=== PATIENT | female | born 1940 | race Caucasian/White ===

== ENCOUNTER 2018-04-02 16:07 | Inpatient (IN) ==
[2018-04-02 16:55] LABS: BASO# 0.06 X1000 (0.0-0.2); BASO% 0.6 % (0.0-0.8); EOS# 0.71 X1000 (0.0-0.7); EOS% 6.6 % (0.0-10.0); HEMATOCRIT 33.6 % (37.0-47.0); HEMOGLOBIN 10.8 g/dL (12.0-16.0); IMM GRAN# 0.08 X1000 (0.0-0.04); IMM GRAN% 0.7 % (0.0-0.5); LYMPH# 3.19 X1000 (1.2-3.4); LYMPH% 29.7 % (20.5-51.1); MCH 26.9 PG (27-31); MCHC 32.1 g/dL (33-37); MCV 83.6 FL (81-99); MONO# 0.64 X1000 (0.11-0.59); NEUT# 6.05 X1000 (1.4-6.5); NEUT% 56.4 % (42.2-75.2); PLT 278 X1000 (130-400); RBC 4.02 XMIL (4.2-5.4); RDW 14.7 % (11.5-14.5); WBC 10.73 X1000 (4.8-10.8)
--- NOTE | 2018-04-02 16:56 | Diag Imaging Result Doc PS360 ---
EXAM: FEMUR MIN 2 VIEWS LEFT INDICATION: EXTREMITY PAIN TECHNIQUE: 4 views COMPARISON: None. FINDINGS: There has been a prior left knee arthroplasty. Arthroplasty hardware is in the expected position. There is a screw in the femoral shaft just proximal to the stem of the femoral component of the arthroplasty hardware that has fractured. A fragment of the screw is seen more inferiorly lateral to the shaft. There is irregularity at the lateral cortex of the mid femoral shaft that appears postsurgical/posttraumatic. There is no definite acute bony fracture, dislocation, or significant intrinsic osseous lesion, otherwise. The surrounding soft tissues are essentially unremarkable by plain radiograph. IMPRESSION: 1.Chronic appearing postsurgical/posttraumatic changes involving the femoral shaft as described. 2.Fractured metallic screw associated with the mid shaft of the femur as detailed above. 3.No definite acute osseous abnormality by plain radiograph. Electronically signed by Zheng Barker 04/02/2018 4:53 PM
[2018-04-02 17:25] LABS: ALB/GLOB RATIO 1.1; ALBUMIN 3.4 g/dL (3.5-5.0); CALCIUM 8.4 mg/dL (8.8-10.2); CREATININE 1.8 mg/dL (0.5-0.9); POTASSIUM 4.3 mmol/L (3.5-5.1); TOTAL BILIRUBIN 0.24 mg/dL (0.20-1.00); TOTAL PROTEIN 6.5 g/dL (6.3-8.3)
[2018-04-02] MEDS ORDERED: LOVENOX 1 MG/KG SUBQ ONE (20:04)
[2018-04-02] MEDS ORDERED: LOVENOX SUBQ ONE (20:30)
--- NOTE | 2018-04-02 23:23 | PROVIDER DOCUMENTATION ---
This chart was entered by Lisa Jensen Scribe, acting as scribe for Donna Mccann DO. HPI-Musculoskeletal Pain/Inj - GENERAL Chief Complaint: Edema Stated Complaint: LEG SWELLING Time Seen by Provider: 04/02/18 19:10 Source: patient - HX OF PRESENT ILLNESS-MUSKULOSKELTAL Nature of Presenting Problem: Patient is a 77 year old female who presents to the ED with left leg pain and swelling. Patient states symptoms started 6 weeks ago but has worsened recently. Patient denies recent injury or trauma to left leg. She was diagnosed with a R subclavian thrombus in January but came off Xarelto because it made her feel anxious and out of sorts. Quality of Pain: reports: aching Severity in ED: mild Onset/Duration: other (6 weeks) Timing: still present, getting worse Modifying Factors: improves with: nothing Any recent injury?: No Locality of Occurance: Home Similar Symptoms Previously?: Yes Recently seen or treated by another doctor?: No - LOWER EXTREMITY PAIN/INJURY Lower Extremities Pain: leg: left Context / Method of Injury: reports: unknown Associated Symptoms: reports: denies symptoms Review of Systems - Adult - REVIEW OF SYSTEMS - ADULT Constitutional: reports: no symptoms reported Eyes: reports: no symptoms reported Ears, Nose, Mouth & Throat: reports: no symptoms reported Cardiovascular: reports: no symptoms reported Respiratory: reports: shortness of breath. denies: cough, wheezing Gastrointestinal: reports: no symptoms reported Genitourinary: reports: no symptoms reported Musculoskeletal: reports: other (left leg pain). denies: back pain, neck pain Integumentary: reports: no symptoms reported Neurological: reports: no symptoms reported Psychiatric: reports: no symptoms reported Endocrine: reports: no symptoms reported Hematologic/Lymphatic: reports: no symptoms reported Allergic/Immunologic: reports: no symptoms reported All Other Systems: Reviewed and Negative Past History - Adult - PAST MEDICAL HISTORY-ADULT Review of Records: reports: Nursing Assessment Review, Medications Reviewed, Social history reviewed & non-contributory. Major Childhood Illnesses: reports: denies history Cardiovascular: reports: HTN Respiratory: reports: asthma, COPD Gastrointestinal: reports: cancer Obstetrical/Gynecological: reports: denies history Genitourinary: reports: denies history Musculoskeletal: reports: arthritis, chronic pain Neurological: reports: CVA, Seizures/Epilepsy Endocrine/Immune: reports: Diabetes, thyroid disorder Other Conditions: reports: other cancer - PRIOR SURGERIES/PROCEDURES Surgical/Procedure History: reports: cholecystectomy, hernia repair, joint replacement (total knee), other (bladder sx) - PRIOR HOSPITALIZATIONS Prior Hospitalizations: reports: none - IMMUNIZATION STATUS Childhood Immunizations: See Nurse Assessment Flu Vaccine: See Nurse Assessment - FAMILY HISTORY Family History: reviewed, not pertinent - SOCIAL HISTORY Smoking: denies Substance Use: denies Living Situation: family Physical Exam-Injury Related - Physical Exam-Injury Related Initial Vital Signs Reviewed: Yes General Appearance: alert, no apparent distress Respiratory: chest non-tender, lungs clear, normal breath sounds Cardiovascular: normal peripheral pulses, regular rate, rhythm Abdominal Exam: normal bowel sounds, non tender, soft Extremity: swelling (left upper and lower leg), tenderness (left medial thigh). negative: deformity, erythema Integumentary: normal color, warm/dry Neurologic: grossly normal Psych/Mental Status: normal mood/affect, oriented x 3 Progress - PLAN OF CARE/RESULTS Progress/Plan/Lab Results: Vital Signs - 8 hr 04/02/18 16:17 04/02/18 20:29 04/02/18 20:30 Temperature 98.4 F Pulse Rate 70 49 L 45 L Respiratory Rate 20 22 16 Blood Pressure 158/72 O2 Sat by Pulse Oximetry 96 97 66 L 04/02/18 20:40 04/02/18 20:50 04/02/18 21:00 Temperature Pulse Rate 52 L 52 L 51 L Respiratory Rate 10 L 15 15 Blood Pressure O2 Sat by Pulse Oximetry 100 99 04/02/18 21:10 04/02/18 21:20 04/02/18 21:30 Temperature Pulse Rate 56 L 58 L 53 L Respiratory Rate 15 15 14 Blood Pressure O2 Sat by Pulse Oximetry 98 04/02/18 21:40 04/02/18 21:50 04/02/18 22:00 Temperature Pulse Rate 55 L 53 L 53 L Respiratory Rate 16 18 17 Blood Pressure O2 Sat by Pulse Oximetry 97 04/02/18 22:10 04/02/18 22:57 Temperature Pulse Rate 55 L 57 L Respiratory Rate 16 18 Blood Pressure O2 Sat by Pulse Oximetry 97 96 Laboratory Results - last 24 hr 04/02/18 04/02/18 04/02/18 16:27 16:27 16:27 WBC 10.73 RBC 4.02 L Hgb 10.8 L Hct 33.6 L MCV 83.6 MCH 26.9 L MCHC 32.1 L RDW Std Deviation 14.7 H Plt Count 278 MPV 10.0 Immature Gran % (Auto) 0.7 H Neut % (Auto) 56.4 Lymph % (Auto) 29.7 [place] % (Auto) 6.0 Eos % (Auto) 6.6 Baso % (Auto) 0.6 Immature Gran # (Auto) 0.08 H Neut # (Auto) 6.05 Lymph # (Auto) 3.19 [place] # (Auto) 0.64 H Eos # (Auto) 0.71 H Baso # (Auto) 0.06 D-Dimer, Quantitative 1.18 H Sodium 139 Potassium 4.3 Chloride 105 Carbon Dioxide 21 L Anion Gap 13 BUN 30 H Creatinine 1.8 H Estimated GFR/1.73 m2 27 BUN/Creatinine Ratio 17 Glucose 203 H Calculated Osmolality 290 Calcium 8.4 L Total Bilirubin 0.24 AST 8 L ALT 7 L Alkaline Phosphatase 94 Total Protein 6.5 Albumin 3.4 L Globulin 3.1 Albumin/Globulin Ratio 1.1 Orders Category Date Time Status FEMUR MIN 2 VIEWS LEFT [RAD] Stat Exams 04/02/18 16:29 Completed CBC WITH ELECTRONIC DIFF [HEME] Stat Lab 04/02/18 16:27 Completed CMP [COMPREHENSIVE METABOLIC PANEL] [CHEM] Stat Lab 04/02/18 16:27 Completed D-DIMER [COAG] Stat Lab 04/02/18 16:27 Completed Enoxaparin [Lovenox] Med 04/02/18 20:30 Discontinued 100 mg SUBQ ONCE ONE Venous U/S Left Leg Stat Ther 04/02/18 21:21 Completed Clinically stable here. US positive for L femoral vein DVT. Her R pleuritic CP is concerning for PE. Her creatinine is 1.8 thus CTA not possible. She was given Lovenox 1mg/kg, admitted to hospitalist service for further eval and treatment. Result Diagrams: 04/02/18 16:27 04/02/18 16:27 - XRAY 1 XRAY: Left XRAY Study: Femur Impression: See EMR Report ( EXAM: FEMUR MIN 2 VIEWS LEFT INDICATION: EXTREMITY PAIN TECHNIQUE: 4 views COMPARISON: None. FINDINGS: There has been a prior left knee arthroplasty. Arthroplasty hardware is in the expected position. There is a screw in the femoral shaft just proximal to the stem of the femoral component of the arthroplasty hardware that has fractured. A fragment of the screw is seen more inferiorly lateral to the shaft. There is irregularity at the lateral cortex of the mid femoral shaft that appears postsurgical/posttraumatic. There is no definite acute bony fracture, dislocation, or significant intrinsic osseous lesion, otherwise. The surrounding soft tissues are essentially unremarkable by plain radiograph. IMPRESSION: 1.Chronic appearing postsurgical/posttraumatic changes involving the femoral shaft as described. 2.Fractured metallic screw associated with the mid shaft of the femur as detailed above. 3.No definite acute osseous abnormality by plain radiograph. Electronically signed by Zheng Barker 2018 4:53 PM 04/02/18 1653 Interpreting Physician: Zheng Barker MD Dictated Date/Time: 04/02/18 1649 cc: Umer Whitaker MD; Gal Ortega) - CONSULTS/PCP/HOSPITALIST Notification #1 *Consult/PCP/Hospitalist*: Dr. Araujo Time Discussed: 21:21 Reason/Comments: Dr. Mccann consulted with Dr. Araujo about patient. Consult Disposition: Will see in ED Departure - Departure Date of Disposition Decision: 04/02/18 Time of Disposition Decision: 23:21 DIAGNOSIS: DVT (deep venous thrombosis) Qualifiers: DVT location: lower extremity Affected thrombotic vein of extremity: femoral Chronicity: acute Laterality: left Qualified Code(s): I82.412 - Acute embolism and thrombosis of left femoral vein Disposition: ADMITTED INPATIENT 09 Certified Medical Emergency: Emergent Condition: Fair Referrals and Follow-Ups: Gal Ortega [Primary Care Provider] - - Critical Care Note This patient required my direct & personal management of CC.: No Attestation - Physician/ NADEGE Attestation The physician spent face to face time with patient:: Yes Advanced Practice Provider documentation review:: Supervising physician onsite and consulted in the evaluation and care of this patient. The physician did have a face to face encounter with the patient. This chart was documented by the indicated scribe, (Lisa Jensen Scribe) and accurately reflects the services I performed and decisions made by me, Donna Mccann DO, as attested by the provider's signature.
[2018-04-02] MEDS ORDERED: PERCOCET-10 PO ONE (23:55)
[2018-04-03] MEDS ORDERED: NS 500 ML IV ONE (00:15)
[2018-04-03] MEDS ORDERED: NS 1,000 ML IV ONE (01:25)
[2018-04-03] MEDS ORDERED: TYLENOL PO PRN (01:25)
--- NOTE | 2018-04-03 06:06 | HISTORY AND PHYSICAL ---
PRIMARY CARE PHYSICIAN: Dr. Gal Ortega. REASON FOR ADMISSION: Worsening left lower extremity pain for the last one week. HISTORY: Ms. Vale Melgar is a 77-year-old lady who has a history of upper extremity DVT secondary to a prior PICC line placed for a urinary tract infection treatment. When she was discharged at that time in January of last year, she was put on Xarelto but the patient said a month into her treatment she started having reactions to it and had to discontinue it. She was then switched to aspirin. She comes today complaining of a three-week history of left lower extremity pain which has remained fairly constant and stable but over the last one week the pain has been worse. She said the pain occurs behind her calf and going to the medial aspect of her left thigh and all the way to the hip area. She has noticed swelling of her left lower extremity compared to the right. She also complains of chronic history of shortness of breath which has not worsened with some intermittent chest pain but there is no increase in duration, intensity or frequency. Denied any cough, fever or chills. She denies any palpitations, headaches. The patient describes pain as sharp, aching pain with no specific aggravating or relieving factors. No cardiorespiratory complaints, no GI or complaints other than constipation. REVIEW OF SYSTEMS: A 12-system review was done. Positive findings as per HPI. ALLERGIES: Keflex, hydrocodone and sulfa and latex. HOME MEDICATIONS: She is on: 1. Allopurinol 100 mg daily. 2. Celexa 14 mg daily. 3. Amaryl 1 mg daily. 4. Novolin sliding scale p.r.n. 5. Lantus 25 units b.i.d. 6. Synthroid 50 mcg daily. 7. Lisinopril one tablet daily. 8. Amitiza 75 mcg b.i.d. 9. Metoprolol 25 mg daily. 10.Movantik 12.5 mg daily. 11.Omeprazole 40 mg daily. 12.Percocet 10 mg q.6. p.r.n. 13.Requip 1 mg nightly. 14.Tolterodine 4 mg daily. SURGICAL HISTORY: Cholecystectomy, bladder surgery, abdominal hernia repair, stomach biopsy, mass excision. FAMILY HISTORY: No thrombophilia in the family. No diabetes. Positive heart disease in first- degree relatives. SOCIAL HISTORY: IMAGING: The patient had acute thrombosis of the left femoral vein. Femoral x- ray showed chronic appearing postsurgical, post-traumatic changes involving the femoral shaft. A fractured metallic screw associated with the mid shaft of the femur. LAB WORK: White count 10,000, hemoglobin and hematocrit are 10 and 30, platelets 278, normal differential. BUN is 30, creatinine is 1.8, this is up from creatinine of 0.9. EXAMINATION: VITAL SIGNS: Blood pressure 158/72, heart rate 70, respirations 20, temperature is 98.4, 96% on room air. GENERAL: She is a morbidly obese, elderly woman who is in moderate distress from her pain. She is alert and oriented to person, place and time with normal mood and affect. HEENT: Head is normocephalic and atraumatic. Eyes: PERRL. EOMI. She is anicteric and not pale. NECK: Supple. No JVD or carotid bruit. No thyromegaly. CHEST: Clear to auscultation. Good air entry both lung couch. CARDIOVASCULAR: First and second heart sounds heard. No gallops, murmurs or rubs. Rhythm is regular. ABDOMEN: Protuberant and soft. No focal areas tenderness. No mass or megaly. Bowel sounds are hypoactive. RECTAL: Exam deferred at this time. EXTREMITIES: The patient has noticeable left lower extremity which is twice the size of the right. There is 1+ pitting edema of the left lower extremity. There is good pulse volume distally in all extremities and regular. She has mild tenderness in the medial aspect of her left thigh and at the lateral aspect of her left hip. No erythema noted on either lower extremity. No clubbing or peripheral cyanosis. NEUROLOGIC: No focal deficits. SKIN: Intact with no breakdown, lesions or erythema. MUSCULAR: Exam is grossly normal. ASSESSMENT: 1. Right femoral DVT. 2. Type 2 diabetes. 3. Acute kidney injury. 4. Hypertension. 5. Hyperthyroidism. 6. Gout. 7. Hyperlipidemia. 8. COPD, stable. PLAN: The patient will be started on Lovenox for now. Choice of anticoagulation yet to be determined. Preferably, patient may be tried on Coumadin instead of the new activator factor 10 inhibitors. Alternatively, she can be started on a direct thrombin 2 inhibitor. Will in the interim continue with Lovenox. Treat patient's pain with opioids, i.e. Percocet , which she takes at home. Leg elevation and thighs. The patient also has a fractured screw of her left mid shaft of her femur and will consult Orthopedic Surgery to see for any recommendations. Will hydrate patient with fluids to correct renal dysfunction which could have been aggravated by lisinopril. Will follow labs in the a.m. Will continue Lantus while maintaining preprandial and postprandial sugars with sliding scale. cc: David Araujo MD [facility]
[2018-04-03] MEDS: PRILOSEC PO SCH (07:41)
[2018-04-03] MEDS: SYNTHROID PO SCH (07:41)
[2018-04-03] MEDS: HUMALOG SUBQ SCH ×4 (07:42→20:43)
[2018-04-03 08:07] LABS: BASO# 0.07 X1000 (0.0-0.2); BASO% 0.9 % (0.0-0.8); EOS# 0.55 X1000 (0.0-0.7); EOS% 7.4 % (0.0-10.0); HEMATOCRIT 34.8 % (37.0-47.0); HEMOGLOBIN 11.1 g/dL (12.0-16.0); IMM GRAN# 0.08 X1000 (0.0-0.04); IMM GRAN% 1.1 % (0.0-0.5); LYMPH# 2.55 X1000 (1.2-3.4); LYMPH% 34.2 % (20.5-51.1); MCHC 31.9 g/dL (33-37); MCV 84.7 FL (81-99); MONO% 6.7 % (1.7-9.3); MPV 9.9 FL (7.4-10.4); NEUT# 3.71 X1000 (1.4-6.5); NEUT% 49.7 % (42.2-75.2); PLT 207 X1000 (130-400); RBC 4.11 XMIL (4.2-5.4); RDW 14.8 % (11.5-14.5); WBC 7.46 X1000 (4.8-10.8)
[2018-04-03 08:11] LABS: ALB/GLOB RATIO 0.9; ALBUMIN 2.9 g/dL (3.5-5.0); CALCIUM 8.4 mg/dL (8.8-10.2); CREATININE 1.8 mg/dL (0.5-0.9); MAGNESIUM 1.7 mg/dL (1.5-2.7); POTASSIUM 4.4 mmol/L (3.5-5.1); TOTAL BILIRUBIN 0.33 mg/dL (0.20-1.00); TOTAL PROTEIN 6.2 g/dL (6.3-8.3)
[2018-04-03] MEDS: BASAGLAR SUBQ SCH ×2 (08:43→20:38)
[2018-04-03] MEDS: TOPROL XL PO SCH (08:45)
[2018-04-03] MEDS: ZYLOPRIM PO SCH (08:45)
[2018-04-03] MEDS: MOVANTIK PO SCH (08:45)
[2018-04-03] MEDS: AMITIZA PO SCH ×2 (08:45→20:37)
[2018-04-03] MEDS: CELEXA PO SCH (08:46)
[2018-04-03] MEDS ORDERED: LOVENOX SUBQ SCH (09:00)
[2018-04-03] MEDS: ZOFRAN IV PRN (10:02)
[2018-04-03] MEDS ORDERED: ZOFRAN IM ONE (10:29)
[2018-04-03] MEDS: NS 1,000 ML IV SCH ×3 (11:57→20:42)
[2018-04-03] MEDS ORDERED: CALMOSEPTINE OINTMENT TOP PRN (12:50)
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
--- NOTE | 2018-04-03 14:36 | Diag Imaging Result Doc PS360 ---
EXAM: CHEST-2 VIEWS 04/03/2018 HISTORY: LLE DVT TECHNIQUE: PA and lateral chest COMMENT: There are multiple old rib fractures posterior laterally on the left. The inspiration is less optimal than on 01/29/2018. There is some ill-defined opacity in the left base which was not apparent on the previous study. The possibility of atelectasis or mild bronchopneumonia cannot be excluded. IMPRESSION: Questionable atelectasis versus pneumonia left lower lobe. Electronically signed by Fransisco King 04/03/2018 2:33 PM
--- NOTE | 2018-04-03 15:03 | PROGRESS NOTE ---
DATE: 04/03/2018 The patient initially presented with leg pain. Initial workup showed fractured surgical screw and large femoral DVT. Patient previously with a left leg DVT after surgery and with an upper extremity DVT associated with PICC, but this appears to be her 1st unprovoked DVT. The patient is largely immobile at baseline, although she can transfer from bed to a seat or to a toilet and back. Patient also with elevation in creatinine. Creatinine on admission 1.8. Baseline appears to be 0.9 to 1.1. The patient does endorse some difficulty passing urine for many years and has had surgical procedures for this in the past. We will obtain bladder scan, and if there is any retention, then we will place a Luther. We will increase IV fluid to normal saline at 150 per hour and monitor closely. If there is no obstruction and kidney function does not improve with fluids, then we will consider nephrology consult in the morning. Patient on anticoagulation with Lovenox, dosed once per day based on her kidney function. If kidney function improves, then we may need to change to twice a day. The patient has been intolerant of Xarelto in the past. She states that she broke out in a rash with it. May consider Eliquis versus Coumadin on discharge. Given that this is her 3rd DVT and her immobility is not going to change, she will likely need lifelong anticoagulation. Glucose control reasonable on current sliding scale insulin and home glargine. Continue to monitor glucose. If kidney function improves and no other problems are identified, she may be able to be discharged tomorrow on Eliquis.
--- NOTE | 2018-04-03 15:06 | Diag Imaging Result Doc PS360 ---
EXAM: LUNG SCAN / VQ 04/03/2018 HISTORY: DVT pt with possible PE TECHNIQUE: Ventilation/perfusion lung scan, 40.4 mCi of technetium 99m DTPA aerosol for the ventilation portion and 5.8 mCi of technetium 99m MAA for the perfusion portion. COMMENT: There is no evidence of ventilation/perfusion mismatch. No absolute perfusion defects are present. IMPRESSION: Low probability for pulmonary embolus. Electronically signed by Fransisco King 04/03/2018 3:04 PM
[2018-04-03] MEDS: PERCOCET-10 PO PRN (17:02)
[2018-04-03 17:16] LABS: URINE SOURCE CATH
[2018-04-03 17:26] LABS: BILIRUBIN URINE NEGATIVE (NEGATIVE); BLOOD URINE NEGATIVE (NEGATIVE); COLOR YELLOW; GLUCOSE URINE NEGATIVE (NEGATIVE); KETONE URINE NEGATIVE (NEGATIVE); LEUKOCYTES URINE NEGATIVE (NEGATIVE); NITRITE URINE NEGATIVE (NEGATIVE); PROTEIN URINE 30 mg/dL (NEGATIVE); SP GRAVITY URINE 1.009; TURBIDITY URINE CLEAR (CLEAR); UROBILINOGEN URINE NORMAL (NORMAL)
[2018-04-03 17:39] LABS: UR EPITHELIAL CELLS <10 /HPF (<10); URINE BACTERIA NEGATIVE /HPF; URINE RBC <10 /HPF (<10); URINE WBC <10 /HPF (<10)
[2018-04-03 17:42] LABS: URINE CASTS GRANULAR PRESENT; URINE CRYSTALS NONE SEEN; URINE YEAST NONE SEEN
[2018-04-03] MEDS: REQUIP PO SCH (20:43)
[2018-04-04] MEDS: PERCOCET-10 PO PRN ×3 (00:24→15:39)
--- NOTE | 2018-04-04 02:19 | Extremity Venous Study ---
PROCEDURE NAME: Venous U/S Left Leg - 04/02/2018 REFERRING PHYSICIAN: Madai. READING PHYSICIAN: Jocelin. TOY MAKER: Geronimo. INDICATION: Left leg swelling. FINDINGS: The deep and superficial veins of the left lower extremity were imaged throughout their course. There is acute thrombosis, decreased compressibility, and no flow in the left common femoral and superficial femoral veins. The remaining veins of left lower extremity were normal. INTERPRETATION: Acute DVT of the left common femoral and superficial femoral veins. cc: MD Donna Stewart DO
[2018-04-04] MEDS: PRILOSEC PO SCH (06:24)
[2018-04-04] MEDS: SYNTHROID PO SCH (06:24)
[2018-04-04] MEDS: HUMALOG SUBQ SCH ×3 (06:59→16:09)
[2018-04-04] MEDS: NS 1,000 ML IV SCH ×4 (06:59→18:14)
[2018-04-04] MEDS: LOVENOX SUBQ SCH (08:29)
[2018-04-04] MEDS: BASAGLAR SUBQ SCH ×2 (08:30→22:09)
[2018-04-04] MEDS: MOVANTIK PO SCH (08:32)
[2018-04-04] MEDS: ZYLOPRIM PO SCH (08:32)
[2018-04-04] MEDS: AMITIZA PO SCH ×2 (08:32→22:08)
[2018-04-04] MEDS: TOPROL XL PO SCH (08:32)
[2018-04-04] MEDS: CELEXA PO SCH (08:32)
[2018-04-04] MEDS ORDERED: LOVENOX 1 MG/KG SUBQ SCH (09:00)
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
[2018-04-04] MEDS ORDERED: APRESOLINE IV PRN (14:02)
[2018-04-04] MEDS: ZOFRAN IV PRN (15:47)
[2018-04-04] MEDS: APRESOLINE PO SCH ×2 (15:48→22:08)
--- NOTE | 2018-04-04 17:11 | PROGRESS NOTE ---
DATE: 04/04/2018 SUBJECTIVE: This patient is completely alert and oriented x 3. Family members at the bedside, her . She is feeling better, but she is weak to the point that she cannot walk and apparently she has not been walking for a little bit. Not sure how much time though. She has been admitted for a left lower extremity DVT, left femoral DVT and I think she is getting Lovenox twice a day. 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 OBJECTIVE: Vital Signs: Temperature 98.4, pulse 58, respiratory rate 16, blood pressure 191/40 oxygen saturation 95% on room air. HEENT: Head normocephalic. No trauma. PERRLA. Neck: Supple. No JVD. No masses. Central trachea. Chest: Clear to auscultation. No wheezing. No rales. Abdomen: Soft. Nontender, nondistended. No hepatosplenomegaly. Extremities: She has no edema. No clubbing, no cyanosis. She has some pain at the level of the left knee and she has some chronic wounds to the left heel and dorsal area on her left foot, but they look fine. No signs of infection. Also, she has a previous history of knee surgery and the wounds she has a couple scars and they are fine. Neurologic: Alert and oriented x 3. No focal deficits. LABORATORY: Glucose 130. ASSESSMENT AND PLAN: 1. Left femoral DVT. Apparently, this is not the first time that this patient has DVT. She has been on blood thinners before. I do believe consult she has been on home on blood thinners, anticoagulation before. I do believe this patient needs to be on long lifelong anticoagulation, but I will get Hematology/Oncology Department to evaluate this patient and decide the further treatment. 2. Type 2 diabetes. Continue with same management. 3. Acute kidney injury. I do not have any lab work today, but I will get a new BMP tomorrow morning. I will follow. 4. Hypertension. This patient's blood pressure has been elevated at 180. I have placed this patient on hydralazine 3 times a day. Probably we will need to use something else. She has been on lisinopril which has been stopped due to the kidney injury. 5. Hypothyroidism. Continue with Synthroid. 6. Gout. Continue with same management. 7. Hyperlipidemia. Continue with same treatment. 8. COPD, not in exacerbation. cc: Matthew Guo MD MTDD
[2018-04-04] MEDS: REQUIP PO SCH (22:08)
[2018-04-05] MEDS: HUMALOG SUBQ SCH ×5 (03:04→21:05)
[2018-04-05] MEDS: NS 1,000 ML IV SCH ×2 (05:29→19:23)
[2018-04-05] MEDS: SYNTHROID PO SCH ×2 (05:30→06:00)
[2018-04-05] MEDS: PRILOSEC PO SCH ×2 (05:30→06:00)
[2018-04-05] MEDS: APRESOLINE PO SCH ×3 (05:30→21:31)
[2018-04-05 06:02] LABS: BASO# 0.05 X1000 (0.0-0.2); BASO% 0.5 % (0.0-0.8); EOS# 0.46 X1000 (0.0-0.7); EOS% 4.5 % (0.0-10.0); HEMOGLOBIN 10.4 g/dL (12.0-16.0); IMM GRAN# 0.09 X1000 (0.0-0.04); IMM GRAN% 0.9 % (0.0-0.5); LYMPH# 4.03 X1000 (1.2-3.4); LYMPH% 39.2 % (20.5-51.1); MCH 27.2 PG (27-31); MCHC 31.5 g/dL (33-37); MCV 86.2 FL (81-99); MONO# 0.71 X1000 (0.11-0.59); MONO% 6.9 % (1.7-9.3); MPV 9.9 FL (7.4-10.4); NEUT# 4.95 X1000 (1.4-6.5); PLT 233 X1000 (130-400); RBC 3.83 XMIL (4.2-5.4); RDW 14.9 % (11.5-14.5); WBC 10.29 X1000 (4.8-10.8)
[2018-04-05 06:25] LABS: ALBUMIN 2.7 g/dL (3.5-5.0); CALCIUM 7.7 mg/dL (8.8-10.2); CREATININE 1.3 mg/dL (0.5-0.9); POTASSIUM 4.2 mmol/L (3.5-5.1); TOTAL BILIRUBIN 0.18 mg/dL (0.20-1.00); TOTAL PROTEIN 5.3 g/dL (6.3-8.3)
[2018-04-05] MEDS: MOVANTIK PO SCH (11:02)
[2018-04-05] MEDS: ZYLOPRIM PO SCH (11:03)
[2018-04-05] MEDS: BASAGLAR SUBQ SCH ×2 (11:03→21:05)
[2018-04-05] MEDS: AMITIZA PO SCH ×2 (11:03→21:05)
[2018-04-05] MEDS: TOPROL XL PO SCH (11:03)
[2018-04-05] MEDS: CELEXA PO SCH (11:03)
[2018-04-05] MEDS: LOVENOX SUBQ SCH (11:04)
[2018-04-05] MEDS: PERCOCET-10 PO PRN ×2 (11:12→21:31)
[2018-04-05] MEDS: NORVASC PO SCH (11:25)
--- NOTE | 2018-04-05 12:03 | PROGRESS NOTE ---
DATE: 04/05/2018 SUBJECTIVE: The patient is completely alert and oriented x3. Family members at the bedside. Her left lower extremity pain is better. Since this is not the first time that this patient has had a DVT, I have requested Hematology/Oncology Department evaluation. Likely she needs to follow up with Hematology/Oncology as an outpatient as well. Probably she will need lifelong anticoagulation. OBJECTIVE: Vital Signs: Temperature 98.3 degrees, pulse 52, respiratory rate 16, blood pressure 148/41, oxygen saturation 95% on room air. HEENT: Head normocephalic. No trauma. PERRLA. Neck: Supple. No JVD. No masses. Central trachea. Chest: Clear to auscultation. No wheezing. No rales. Abdomen: Soft, nontender, nondistended. No hepatosplenomegaly. Extremities: No edema. No clubbing. No cyanosis. She has some pain at the level of the left thigh. She has a chronic wound to the left heel and dorsal area of the left foot but they look fine, healing well. No signs of infection. Also, she has a previous history of knee surgery and the scars look fine. Neurological: Alert and oriented x3. No focal deficits. LABORATORY: WBC 10.2, hemoglobin 10.4, hematocrit 33, platelets 233,000. Sodium 143, potassium 4.2, chloride 116, bicarbonate 18, BUN 17, creatinine 1.3, glucose 79, calcium 7.7, albumin 2.7. ASSESSMENT AND PLAN: 1. Left femoral deep vein thrombosis. Apparently this is not the first time that this patient has had a DVT; she had a couple episodes before. I will get Hematology/Oncology Department to evaluate this patient and get some recommendations. Apparently she was placed on Xarelto before but she did not tolerate that. 2. Type 2 diabetes. Continue with same management. 3. Acute kidney injury. This is getting better. Getting really close to her baseline. The creatinine decreased from 1.8 to 1.3. 4. Hypertension. This patient's blood pressure is still elevated. I will add amlodipine to her medications and I will still hold the lisinopril for now due to her kidney injury. 5. Hypothyroidism. Continue with Synthroid. 6. Gout. Continue with same management. 7. Hyperlipidemia. Continue with the same treatment. 8. Chronic obstructive pulmonary disease. Not in exacerbation. cc: Matthew Guo MD
[2018-04-05] MEDS: ZOFRAN IV PRN (17:41)
[2018-04-05] MEDS: REQUIP PO SCH (21:04)
[2018-04-06] MEDS: PERCOCET-10 PO PRN ×2 (03:46→10:19)
[2018-04-06] MEDS: SYNTHROID PO SCH ×2 (05:40→06:29)
[2018-04-06] MEDS: PRILOSEC PO SCH ×2 (05:40→06:29)
[2018-04-06] MEDS: APRESOLINE PO SCH (05:41)
[2018-04-06 06:19] LABS: CALCIUM 8.1 mg/dL (8.8-10.2); CREATININE 1.2 mg/dL (0.5-0.9); POTASSIUM 4.4 mmol/L (3.5-5.1)
[2018-04-06] MEDS: HUMALOG SUBQ SCH ×2 (06:28→11:38)
[2018-04-06 07:40] VITALS: BP 169/49
[2018-04-06] MEDS: NORVASC PO SCH (08:21)
[2018-04-06] MEDS: ZYLOPRIM PO SCH (08:21)
[2018-04-06] MEDS: BASAGLAR SUBQ SCH (08:21)
[2018-04-06] MEDS: CELEXA PO SCH (08:21)
[2018-04-06] MEDS: MOVANTIK PO SCH (08:21)
[2018-04-06] MEDS: LOVENOX SUBQ SCH (08:21)
[2018-04-06] MEDS: TOPROL XL PO SCH (08:21)
[2018-04-06] MEDS: AMITIZA PO SCH (08:21)
[2018-04-06] MEDS: NS 1,000 ML IV SCH (08:39)
[2018-04-06] MEDS: ZOFRAN IV PRN (10:20)
[2018-04-06] MEDS ORDERED: MIRALAX PO SCH (11:15)
[2018-04-06] MEDS ORDERED: ELIQUIS PO SCH (21:00)
--- NOTE | 2018-04-07 06:12 | DISCHARGE SUMMARY ---
ADMISSION DATE: 04/03/2018 DISCHARGE DATE: 04/06/2018 DISCHARGE DIAGNOSES: 1. Left femoral deep venous thrombosis. 2. Type 2 diabetes. 3. Acute kidney injury, resolved. 4. Hypertension. 5. Hypothyroidism. 6. Gout. 7. Hyperlipidemia. 8. History of chronic obstructive pulmonary disease. HOSPITAL COURSE: A 77-year-old, female with a past medical history of upper extremity DVT secondary to a prior PICC line. Also, apparently she had another DVT. She is not sure if she had that in the upper or lower extremities. She was placed on Xarelto but the patient said that she had a reaction to it and she discontinued it. Then she was switched to aspirin. She came and was admitted on 04/03/2018 due to a 3 week history of left lower extremity pain that has been constant and stable, mostly over the past week, and has been getting worse. She states that the pain is behind her calf and traveled to the medial aspect of her left thigh, all the way up to the hip area. Also, she noticed some swelling in that extremity compared with the right extremity. This patient also has chronic history of shortness of breath but apparently without any signs of worsening. She was admitted to the medical floor. A lower extremity venous ultrasound was performed and it showed an acute DVT to the left common femoral and superficial femoral veins. She was placed on Lovenox twice a day for at least 2 days and she was feeling better. She did not have any kind of symptoms or any kind of problem during this hospitalization other than increased blood pressure which has been treated with new treatment including amlodipine and hydralazine on top of metoprolol and finally, she has a low dose of lisinopril. She is not complaining of shortness of breath or chest pain. Actually, her lower extremity pain is much better. Vital signs are stable with occasionally an elevated blood pressure. Today, this patient was feeling okay so we have decided to discharge this patient with an active followup with Dr. Zheng tomorrow at 8:30 a.m. She will be switched to p.o. medication, Eliquis twice a day. She will be taking 10 mg p.o. twice a day for 7 days and then 5 mg p.o. daily. They seemed to understand and they are able to go to Dr. Zheng's office. I told them that probably she should go to a rehab center but they refused this possibility. PHYSICAL EXAMINATION: Vital Signs: Temperature 98.4 degrees, pulse 53, respiratory rate 16, blood pressure 169/49, oxygen saturation 94% on room air. HEENT: Head normocephalic. No trauma. PERRLA. Neck: Supple. No JVD. No masses. Central trachea. Chest: Clear to auscultation. No wheezing. No rales. Abdomen: Soft, nontender, nondistended. No hepatosplenomegaly. Extremities: No edema. No clubbing. No cyanosis. She is not complaining of pain at the level of the left lower extremity but some pain at the level of the hip. She has a chronic wound to the left heel and dorsal area of the left foot but they look fine. Actually, they are healing really well. No signs of infection. She has a previous history of knee surgery and she has some scars but they look fine. Neurological Examination: The patient is alert and oriented x3. No focal deficits. LABORATORY: Sodium 144, potassium 4.4, chloride 116, bicarbonate 19, BUN 14, creatinine 1.2, glucose 127, calcium 8.1. DISCHARGE MEDICATIONS: Ropinirole 1 mg p.o. at bedtime, tolterodine tartrate 4 mg p.o. daily, Percocet 10 p.o. q.6-8 hours as needed for pain, omeprazole 40 mg p.o. daily, Movantik 1 tablet p.o. daily, Amitiza (lubiprostone) 24 mcg p.o. b.i.d., lisinopril 5 mg p.o. daily, levothyroxine 50 mcg p.o. daily, Lantus 25 units subcutaneously b.i.d., glimepiride 1 mg p.o. daily, citalopram 40 mg p.o. daily, allopurinol 100 mg p.o. daily, MiraLAX 17 g p.o. b.i.d., metoprolol succinate ER 25 mg p.o. daily, hydralazine 25 mg p.o. q.8 hours, apixaban 10 mg p.o. b.i.d. for 7 days and then 5 mg p.o. daily, amlodipine 5 mg p.o. daily. FOLLOWUP: Follow up with Dr. Zheng tomorrow, 04/07/2018, at 8:30 a.m. Also follow up with her primary care doctor in 1 week. All these instructions were given to the patient and her who was at the bedside. They seemed to understand. Time discharging this patient, 35 minutes. cc: Matthew Guo MD
== END 2018-04-06 13:24 | disposition home health service (06) | DRG 300 ==
LOC: ED 16:07 → 4N 04-03 00:06 → SUATTDRO 04-03 00:06
PROVIDERS: ATTEND Internal Medicine
CPT/HCPCS: 36415; 71020; 71046; 73552; 78582; 80048; 80053; 81001; 82948; 83735; 85025; 85379; 93971; 96372; 99285; A9270; A9539; A9540; J1650; J1815; J2405; J7030; XXXXX

== ENCOUNTER 2019-01-03 15:31 | Inpatient (IN) ==
[2019-01-03] MEDS ORDERED: NS 1,000 ML ONE ×2 (15:43→15:44)
[2019-01-03] MEDS ORDERED: NS 1,000 ML IV ONE ×3 (15:52)
[2019-01-03 16:29] LABS: BASO# 0.08 X1000 (0.0-0.2); BASO% 0.6 % (0.0-0.8); EOS# 0.66 X1000 (0.0-0.7); EOS% 4.8 % (0.0-10.0); HEMATOCRIT 29.7 % (37.0-47.0); HEMOGLOBIN 9.1 g/dL (12.0-16.0); IMM GRAN# 0.25 X1000 (0.0-0.04); IMM GRAN% 1.8 % (0.0-0.5); LYMPH# 3.21 X1000 (1.2-3.4); LYMPH% 23.2 % (20.5-51.1); MCHC 30.6 g/dL (33-37); MCV 88.1 FL (81-99); MONO# 1.12 X1000 (0.11-0.59); MONO% 8.1 % (1.7-9.3); MPV 11.3 FL (7.4-10.4); NEUT% 61.5 % (42.2-75.2); PLT 331 X1000 (130-400); RBC 3.37 XMIL (4.2-5.4); RDW 13.9 % (11.5-14.5); WBC 13.82 X1000 (4.8-10.8)
[2019-01-03 16:34] LABS: INR 1.59; PROTIME 19.3 Seconds (11.0-16.0)
[2019-01-03 16:35] LABS: PTT 41.2 Seconds (22.3-41.8)
--- NOTE | 2019-01-03 16:39 | Diag Imaging Result Doc PS360 ---
CHEST-1 VIEW - 01/03/2019 INDICATION: sepsis COMPARISON: 04/03/2018 FINDINGS: The lungs are clear. Heart size is normal. No pneumothorax or pleural effusion. There are several stable old left-sided rib deformities. IMPRESSION: Negative exam. Electronically signed by Basim Staley 01/03/2019 4:36 PM
[2019-01-03 17:10] LABS: ALB/GLOB RATIO 1.2; ALBUMIN 3.5 g/dL (3.5-5.0); CALCIUM 8.3 mg/dL (8.8-10.2); CREATININE 5.7 mg/dL (0.5-0.9); POTASSIUM 4.8 mmol/L (3.5-5.1); TOTAL BILIRUBIN 0.28 mg/dL (0.20-1.00); TOTAL PROTEIN 6.4 g/dL (6.3-8.3)
[2019-01-03 17:12] LABS: URINE SOURCE CATH
[2019-01-03 17:15] LABS: BILIRUBIN URINE NEGATIVE (NEGATIVE); BLOOD URINE NEGATIVE (NEGATIVE); COLOR YELLOW; GLUCOSE URINE NEGATIVE (NEGATIVE); KETONE URINE NEGATIVE (NEGATIVE); LEUKOCYTES URINE NEGATIVE (NEGATIVE); NITRITE URINE NEGATIVE (NEGATIVE); PROTEIN URINE TRACE mg/dL (NEGATIVE); TURBIDITY URINE HAZY (CLEAR); UROBILINOGEN URINE NORMAL (NORMAL)
[2019-01-03 17:20] LABS: UR EPITHELIAL CELLS <10 /HPF (<10); URINE BACTERIA NEGATIVE /HPF; URINE RBC <10 /HPF (<10); URINE WBC <10 /HPF (<10)
[2019-01-03 17:24] LABS: CK INDEX 1.6 (0.0-2.5); CK-MB 8.78 ng/mL (0.0-5.0)
[2019-01-03 17:27] LABS: URINE CASTS NONE SEEN; URINE CRYSTALS NONE SEEN; URINE YEAST NONE SEEN
--- NOTE | 2019-01-03 18:06 | PROVIDER DOCUMENTATION ---
This chart was entered by Demond Morton Scribe, acting as scribe for Yahir Lemos DO. HPI-Fever - General Stated Complaint: ams Time Seen by Provider: 01/03/19 15:35 Source: patient, family, EMS Allergies/Adverse Reactions: Patient Allergies Allergy/AdvReac Type Severity Reaction Status Date / Time cephalexin monohydrate * Allergy SWELLING Verified 08/25/18 11:17 [From Keflex] hydrocodone Allergy ITCHING Verified 08/25/18 11:17 Latex, Natural Rubber Allergy RASH Verified 08/25/18 11:17 Sulfa (Sulfonamide Allergy ANAPHYLAXIS Verified 08/25/18 11:17 Antibiotics) Home Medications: Home Medication List Medication Instructions Recorded Confirmed Last Taken Type Allopurinol 100 mg PO DAILY 09/06/15 01/03/19 04/02/18 06:00 History Citalopram Hydrobromide 40 mg PO DAILY 09/06/15 01/03/19 04/02/18 06:00 History [Citalopram HBr] Omeprazole 40 mg PO DAILY 09/06/15 01/03/19 04/02/18 06:00 History Oxycodone HCl/Acetaminophen 1 each PO Q6-8H PRN PRN 07/26/16 01/03/19 04/02/18 06:00 History [Percocet 10-325 mg Tablet] Levothyroxine Sodium [Synthroid] 50 microgm PO DAILY 01/02/18 01/03/19 04/02/18 06:00 History Lubiprostone [Amitiza] 24 microgm PO BID 01/02/18 01/03/19 04/02/18 06:00 History Ropinirole [Requip] 1 mg PO QHS 01/02/18 01/03/19 04/01/18 18:00 History Glimepiride 1 mg PO DAILY 01/30/18 01/03/19 04/02/18 06:00 History Insulin Glargine [Lantus] 25 units SQ BID 01/30/18 01/03/19 04/02/18 06:00 His tory Lisinopril 1 tab PO DAILY 01/30/18 01/03/19 04/02/18 06:00 History Naloxegol Oxalate [Movantik] 1 tab PO DAILY 1101/03/19 04/02/18 06:00 History Tolterodine Tartrate [Tolterodine 4 mg PO DAILY 01/30/18 01/03/19 04/02/18 06:00 History Tartrate ER] Amlodipine [Norvasc] 5 mg PO DAILY #90 tab 04/06/18 01/03/19 Unknown Rx Apixaban [Eliquis] 10 mg PO BID #90 tab 04/06/18 01/03/19 Unknown Rx Hydralazine [Apresoline] 25 mg PO Q8H #180 tab 04/06/18 01/03/19 Unknown Rx Metoprolol Succinate E.r. [Toprol 25 mg PO DAILY #90 tab 04/06/18 01/03/19 Unknown Rx Xl] Polyethylene Glycol 3350 [Miralax] 17 gm PO BID #60 powder, packet 04/06/18 01/03/19 Unknown Rx Apixaban [Eliquis] 5 mg PO BID #60 tab 06/16/18 01/03/19 Unknown Rx - History of Present Illness-Fever Nature of Presenting Problem: 78 yof presents to the ed v/a ems with AMS. EMS stated pt has been altered for a couple of days stated by . Ems stated that pt has had slow decline over these past few days , stated " i don't know what to do with her to ems." Ems "stated she was not responsive when arrived at home but started to talk some as coming to the ed." Ems stated last BP was 50/21. states " moved pt to his bed so he could watch her." states "pt is usually moving around in her scooter doing dishes laundry ect but declined the last couple of days and couldn't move out of bed pts legs were weak and had generalized weakne ss." states "no activity in last couple of days ." stated " pts "legs were like jello when moving her to the scooter and was hard to get her dressed." states pt goes to [facility] for shots in her back and received those last month. pt has hx of DM Fever Severity/Quality: reports: other (100.2) Onset/Duration: reports: 3 days ago, 4 days ago Timing: reports: still present Severity: reports: moderate Context: reports: decreased mental status, confusion Recent Illness?: reports: none Fever Therapy FIRE INSPECTOR: Initiated none Cognitive Baseline: alert but confused Modifying Factors: improves with: nothing Associated Symptoms: reports: weakness (generalized). denies: diarrhea, nausea, vomiting Similar Symptoms Previously?: No Recently seen or treated by another doctor?: No - Glascow Coma Score Best Eye Response (Wheeler): (2) open to pain Best Verbal Response (Aníbal): (4) confused conversation Best Motor Response (Wheeler): (5) localizes to pain Wheeler Total: 11 Review of Systems - Adult - REVIEW OF SYSTEMS - ADULT Constitutional: reports: fever. denies: chills, weight loss Eyes: reports: no symptoms reported Ears, Nose, Mouth & Throat: reports: no symptoms reported Cardiovascular: reports: heart murmur (2/6 systolic). denies: chest pain, edema Respiratory: reports: no symptoms reported Gastrointestinal: denies: diarrhea, nausea, vomiting Genitourinary: reports: no symptoms reported Musculoskeletal: reports: no symptoms reported Integumentary: reports: no symptoms reported Neurological: reports: slurred speech, other (generalized weakness). denies: dizziness/vertigo, headache/migraines Psychiatric: reports: no symptoms reported Endocrine: reports: no symptoms reported Hematologic/Lymphatic: reports: no symptoms reported Allergic/Immunologic: reports: no symptoms reported All Other Systems: Reviewed and Negative Past History - Adult - PAST MEDICAL HISTORY-ADULT Review of Records: reports: Old Records Reviewed, Nursing Assessment Review, Medications Reviewed, Social history reviewed & non-contributory. Major Childhood Illnesses: reports: denies history Cardiovascular: reports: HTN Respiratory: reports: asthma, COPD Gastrointestinal: reports: cancer Obstetrical/Gynecological: reports: denies history Genitourinary: reports: denies history Musculoskeletal: reports: arthritis, chronic pain Neurological: reports: CVA, Seizures/Epilepsy Endocrine/Immune: reports: Diabetes, thyroid disorder Other Conditions: reports: other cancer - PRIOR SURGERIES/PROCEDURES Surgical/Procedure History: reports: cholecystectomy, hernia repair, joint replacement (total knee), other (bladder sx) - PRIOR HOSPITALIZATIONS Prior Hospitalizations: reports: none - IMMUNIZATION STATUS Childhood Immunizations: See Nurse Assessment Flu Vaccine: See Nurse Assessment - FAMILY HISTORY Family History: reviewed, not pertinent - SOCIAL HISTORY Smoking: denies Substance Use: denies Living Situation: family Physical Exam-General - PHYSICAL EXAM-ADULT Initial Vital Signs Reviewed: Yes - CONSTITUTIONAL General Appearance: appears well, alert, no apparent distress, obese - EYES Eyes: pink conjunctivae (equal) - HEAD, EARS, NOSE, MOUTH & THROAT HENMT: moist mucous membranes - NECK Neck: non-tender, full range of motion, supple - RESPIRATORY Respiratory: chest non-tender, normal breath sounds, crackles (base) - CARDIOVASCULAR Cardiovascular: regular rate, rhythm, no edema, no gallop, no JVD, tachycardia (91), systolic murmur (2/6) - CHEST (BREASTS) Chest/Breast: deferred - GASTROINTESTINAL (ABDOMEN) Abdominal Exam: normal bowel sounds, non tender, soft - GENITOURINARY Female Genitalia/Pelvic Exam: deferred - LYMPHATIC Lymphatic: no adenopathy - MUSCULOSKELETAL Back Exam: normal inspection, no CVA tenderness, no vertebral tenderness Extremity: normal range of motion, non-tender, normal gait, normal inspection, no calf tenderness - SKIN Integumentary: normal color, normal turgor, warm/dry - NEUROLOGIC Neurologic: other (no localized neruo findings) - PSYCHIATRIC Psych/Mental Status: disoriented x 3 (pt knew her name , didnt know day or year) Progress - PLAN OF CARE/RESULTS Progress/Plan/Lab Results: Vital Signs - 8 hr 01/03/19 15:31 01/03/19 15:33 01/03/19 15:35 Temperature 100.2 F H Pulse Rate 88 91 H Respiratory Rate 18 15 Blood Pressure 95/58 95/58 O2 Sat by Pulse Oximetry 94 L 86 L 91 L 01/03/19 15:45 01/03/19 15:50 01/03/19 15:53 Temperature Pulse Rate 82 81 81 Respiratory Rate 18 16 16 Blood Pressure 114/60 79/41 O2 Sat by Pulse Oximetry 98 97 97 01/03/19 16:00 01/03/19 16:04 01/03/19 16:13 Temperature Pulse Rate 80 79 83 Respiratory Rate 15 26 H 21 Blood Pressure 98/42 116/44 O2 Sat by Pulse Oximetry 99 98 99 01/03/19 16:15 01/03/19 16:24 01/03/19 16:30 Temperature Pulse Rate 80 79 79 Respiratory Rate 20 12 23 Blood Pressure 72/49 O2 Sat by Pulse Oximetry 99 99 100 01/03/19 16:33 01/03/19 16:40 01/03/19 16:43 Temperature Pulse Rate 81 83 81 Respiratory Rate 21 15 17 Blood Pressure 66/39 94/52 116/63 O2 Sat by Pulse Oximetry 100 98 83 L 01/03/19 16:45 01/03/19 16:53 01/03/19 17:00 Temperature Pulse Rate 79 82 82 Respiratory Rate 15 13 12 Blood Pressure 116/51 O2 Sat by Pulse Oximetry 100 100 98 01/03/19 17:04 01/03/19 17:06 01/03/19 17:13 Temperature Pulse Rate 86 81 81 Respiratory Rate 14 13 16 Blood Pressure 74/51 95/47 93/50 O2 Sat by Pulse Oximetry 100 97 100 01/03/19 17:15 01/03/19 17:23 01/03/19 17:30 Temperature Pulse Rate 79 83 82 Respiratory Rate 15 31 H 17 Blood Pressure 87/51 O2 Sat by Pulse Oximetry 98 99 94 L 01/03/19 17:33 01/03/19 17:43 01/03/19 17:45 Temperature Pulse Rate 82 81 81 Respiratory Rate 18 17 28 H Blood Pressure 82/62 89/51 O2 Sat by Pulse Oximetry 99 98 01/03/19 17:54 01/03/19 18:00 Temperature Pulse Rate 82 80 Respiratory Rate 22 14 Blood Pressure 86/33 O2 Sat by Pulse Oximetry 100 71 L Laboratory Results - last 24 hr 01/03/19 01/03/19 01/03/19 15:29 15:29 15:29 WBC 13.82 H RBC 3.37 L Hgb 9.1 L Hct 29.7 L MCV 88.1 MCH 27.0 MCHC 30.6 L RDW Std Deviation 13.9 Plt Count 331 MPV 11.3 H Immature Gran % (Auto) 1.8 H Neut % (Auto) 61.5 Lymph % (Auto) 23.2 [place] % (Auto) 8.1 Eos % (Auto) 4.8 Baso % (Auto) 0.6 Immature Gran # (Auto) 0.25 H Neut # (Auto) 8.50 H Lymph # (Auto) 3.21 [place] # (Auto) 1.12 H Eos # (Auto) 0.66 Baso # (Auto) 0.08 PT 19.3 H INR 1.59 PTT (Actin FS) 41.2 Sodium 138 Potassium 4.8 Chloride 101 Carbon Dioxide 17 L Anion Gap 20 BUN 55 H Creatinine 5.7 H Estimated GFR/1.73 m2 7 BUN/Creatinine Ratio 10 Glucose 260 H Calculated Osmolality 300 Calcium 8.3 L Total Bilirubin 0.28 AST 19 ALT 15 Alkaline Phosphatase 107 H Creatine Kinase 547 H Creatine Kinase Index 1.6 CK-MB (CK-2) 8.78 H Troponin T Total Protein 6.4 Albumin 3.5 Globulin 2.9 Albumin/Globulin Ratio 1.2 Plasma Lactate Urine Source Urine Color Urine Turbidity Urine pH Ur Specific [place] Urine Protein Ur Glucose (Stick) Ur Ketones (Stick) Urine Blood Urine Nitrite Urine Bilirubin Urobilinogen Dipstick Urine Leukocytes Urine WBC (Auto) Urine RBC (Auto) U Epithel Cells (Auto) Urine Bacteria (Auto) Urine Crystals Small Round Cells Urine Casts Urine Yeast-like Cells 01/03/19 01/03/19 01/03/19 15:29 15:29 16:57 WBC RBC Hgb Hct MCV MCH MCHC RDW Std Deviation Plt Count MPV Immature Gran % (Auto) Neut % (Auto) Lymph % (Auto) [place] % (Auto) Eos % (Auto) Baso % (Auto) Immature Gran # (Auto) Neut # (Auto) Lymph # (Auto) [place] # (Auto) Eos # (Auto) Baso # (Auto) PT INR PTT (Actin FS) Sodium Potassium Chloride Carbon Dioxide Anion Gap BUN Creatinine Estimated GFR/1.73 m2 BUN/Creatinine Ratio Glucose Calculated Osmolality Calcium Total Bilirubin AST ALT Alkaline Phosphatase Creatine Kinase Creatine Kinase Index CK-MB (CK-2) Troponin T 0.016 Total Protein Albumin Globulin Albumin/Globulin Ratio Plasma Lactate 1.1 Urine Source CATH Urine Color YELLOW Urine Turbidity HAZY Urine pH 5.0 Ur Specific [place] 1.020 Urine Protein TRACE A Ur Glucose (Stick) NEGATIVE Ur Ketones (Stick) NEGATIVE Urine Blood NEGATIVE Urine Nitrite NEGATIVE Urine Bilirubin NEGATIVE Urobilinogen Dipstick NORMAL Urine Leukocytes NEGATIVE Urine WBC (Auto) <10 Urine RBC (Auto) <10 U Epithel Cells (Auto) <10 Urine Bacteria (Auto) NEGATIVE Urine Crystals NONE SEEN Small Round Cells Not Reportable Urine Casts NONE SEEN Urine Yeast-like Cells NONE SEEN Orders Category Date Time Status Cardiac Monitoring DIRECTED Care 01/03/19 15:36 Active IV Insertion ORDERED Care 01/03/19 15:36 Completed Notify MD of + Sepsis Screen NOW Care 01/03/19 15:36 Active Notify Physician As Ordered Care 01/03/19 15:36 Active CHEST-1 VIEW [RAD] Stat Exams 01/03/19 15:36 Completed BLOOD CULTURE [BLDCUL] Stat Lab 01/03/19 15:40 Results CBC WITH DIFF [HEME] Stat Lab 01/03/19 15:29 Completed CK PROFILE [SP CHEM] Stat Lab 01/03/19 15:29 Completed COMPREHENSIVE METABOLIC PANEL [CHEM] Stat Lab 01/03/19 15:29 Completed LACTATE, PLASMA [CHEM] Lab 01/03/19 18:45 Uncollected LACTATE, PLASMA [CHEM] Lab 01/03/19 21:45 Uncollected LACTATE, PLASMA [CHEM] Q3H Lab 01/03/19 15:29 Completed PROTIME WITH INR [COAG] Stat Lab 01/03/19 15:29 Completed PTT [COAG] Stat Lab 01/03/19 15:29 Completed TROPONIN T Stat Lab 01/03/19 15:29 Completed URINALYSIS W/POSS RFLX CULT [URINALYSIS] Stat Lab 01/03/19 16:57 Completed URINE MANUAL MICROSCOPIC [URINALYSIS] Stat Lab 01/03/19 16:57 Completed 0.9% Sodium Chloride Inj [Ns] 1,000 ml Med 01/03/19 15:43 Discontinued .ROUTE As directed 0.9% Sodium Chloride Inj [Ns] 1,000 ml Med 01/03/19 15:44 Discontinued .ROUTE As directed 0.9% Sodium Chloride Inj [Ns] 1,000 ml Med 01/03/19 15:52 Discontinued IV 999 mls/hr 0.9% Sodium Chloride Inj [Ns] 1,000 ml Med 01/03/19 15:52 Discontinued IV 999 mls/hr 0.9% Sodium Chloride Inj [Ns] 1,000 ml Med 01/03/19 15:52 Discontinued IV 999 mls/hr Oxygen Device Stat Oth 01/03/19 15:36 Completed Result Diagrams: 01/03/19 15:29 01/03/19 15:29 - REASSESSMENT Reassessment #1 Time Reassessed: 16:08 (sitting up in bed talking ) Status: improving Reassessment #2 Time Reassessed: 16:30 Status: improving (more alert and talking. still has some confusion, speach improved) - EKG 1 Time of EKG reading by physician:: 16:25 EKG Read and Signed by:: Yahir Lemos EKG Interpretation (*Must complete 3 of following elements*): Abnormal Rate: 79 Rhythm: NSR [place]: normal QRS: normal MD Interval: normal ST Wave: normal Comments: left bundle branch block - XRAY 1 XRAY Study: Chest Impression: See EMR Report (CHEST-1 VIEW - 01/03/2019 INDICATION: sepsis COMPARISON: 04/03/2018 FINDINGS: The lungs are clear. Heart size is normal. No pneumothorax or pleural effusion. There are several stable old left-sided rib deformities. IMPRESSION: Negative exam. Electronically signed by Basim Staley 01/03/2019 4:36 PM 01/03/191635 Interpreting Physician: Basim Staley MD Dictated Date/Time: 01/03/191635 cc: Yahir Lemos DO; Gal Ortega) - CONSULTS/PCP/HOSPITALIST Notification #1 *Consult/PCP/Hospitalist*: Mariela Time Discussed: 18:03 (Will notify Dr Rothman) Consult Disposition: Will see in ED Departure - Departure Date of Disposition Decision: 01/03/19 Time of Disposition Decision: 18:04 DIAGNOSIS: Acute renal failure Qualifiers: Acute renal failure type: unspecified Qualified Code(s): N17.9 - Acute kidney failure, unspecified Disposition: ADMITTED INPATIENT 09 Certified Medical Emergency: Emergent Condition: Fair Referrals and Follow-Ups: Gal Ortega [Primary Care Provider] - - Critical Care Note This patient required my direct & personal management of CC.: No Attestation - Physician/ NADEGE Attestation Patient care was provided by Advanced Practice Provider:: No The physician spent face to face time with patient:: Yes Advanced Practice Provider documentation review:: Supervising physician onsite and consulted in the evaluation and care of this patient. The physician did have a face to face encounter with the patient. - NIH Stroke Scale Level of Consciousness: 1-Drowsy, but arousable with minimal stimulation LOC Questions (ask month and age): 1-Answers One Correctly LOC Commands (ask to open & close eyes;make a fist, let go): 0-Obeys Both Correctly Best Gaze (horizontal eye movement): 0-Normal Visual (use finger movement, counting or visual threat): 0-No Visual Loss Facial Palsy (show teeth or raise eyebrows & close eyes tght: 0-Symmetrical Movement Motor Function-left arm: 0-Normal Motor Function-right arm: 0-Normal Motor Function-left le-Some Effort Against [place] Motor Function-right le-Some Effort Against [place] Limb Ataxia([id number]-[id number], or heel to yeung): 0-Untestable Sensory(pin prick to face,arms,trunk,legs-compare side/side): 0-No Ataxia Best Language(name item/read sentence.Ex-Down to Earth): 0-No Aphasia Dysarthria(Pt read words or say words Ex.Mama,Tip-Top,Thanks: 1-Mild-Mod Slurring Words Extinction and Inattention: 0-Normal NIH Total Score: 7 This chart was documented by the indicated scribe, (Demond Morton, Scribe) an d accurately reflects the services I performed and decisions made by me, Yahir Lemos DO, as attested by the provider's signature.
[2019-01-03] MEDS ORDERED: ZOFRAN IV PRN (18:14)
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
--- NOTE | 2019-01-03 19:25 | Diag Imaging Result Doc PS360 ---
KUB ABDOMEN - 01/03/2019 INDICATION: ?constipation COMPARISON: 07/26/2016 FINDINGS: There is a nonobstructive bowel gas pattern. No free air or abdominal calcifications. There is no constipation. IMPRESSION: No acute disease. Electronically signed by Basim Staley 01/03/2019 7:23 PM
[2019-01-03] MEDS: HUMALOG SUBQ SCH (21:11)
[2019-01-03] MEDS: NS 1,000 ML IV SCH (21:12)
[2019-01-04] MEDS: HUMALOG SUBQ SCH ×4 (05:59→21:25)
--- NOTE | 2019-01-04 07:25 | EKG Report ---
Test Performed on : 01/04/2019 07:03:59 AM Test Reason : cad Blood Pressure : / mmHG Vent. Rate : 071 BPM Atrial Rate : 071 BPM P-R Int : 176 ms QRS Dur : 164 ms QT Int : 500 ms P-R-T Axes : 096 009 142 degrees QTc Int : 543 ms Normal sinus rhythm. Left bundle branch block Abnormal ECG When compared with ECG of 03-JAN-2019 16:25, (Unconfirmed) No significant change was found Confirmed by Shad Leger MD ([id number]) on 01/04/2019 9:05:35 AM
[2019-01-04 07:49] LABS: BASO# 0.06 X1000 (0.0-0.2); BASO% 0.8 % (0.0-0.8); EOS# 0.52 X1000 (0.0-0.7); EOS% 6.5 % (0.0-10.0); HEMATOCRIT 26.6 % (37.0-47.0); IMM GRAN# 0.16 X1000 (0.0-0.04); LYMPH# 2.02 X1000 (1.2-3.4); LYMPH% 25.4 % (20.5-51.1); MCH 26.8 PG (27-31); MCHC 30.1 g/dL (33-37); MCV 89.3 FL (81-99); MONO# 0.72 X1000 (0.11-0.59); MPV 10.6 FL (7.4-10.4); NEUT# 4.48 X1000 (1.4-6.5); NEUT% 56.3 % (42.2-75.2); PLT 305 X1000 (130-400); RBC 2.98 XMIL (4.2-5.4); RDW 14.2 % (11.5-14.5); WBC 7.96 X1000 (4.8-10.8)
--- NOTE | 2019-01-04 07:57 | EKG Report ---
Test Performed on : 01/03/2019 4:25:24 PM Test Reason : ED. NO EKG ORDER FOR MUSE Blood Pressure : / mmHG Vent. Rate : 079 BPM Atrial Rate : 079 BPM P-R Int : 162 ms QRS Dur : 158 ms QT Int : 456 ms P-R-T Axes : 079 003 155 degrees QTc Int : 522 ms Normal sinus rhythm. Left bundle branch block Abnormal ECG When compared with ECG of 31-JAN-2018 10:13, Left bundle branch block is now present Unconfirmed Result
[2019-01-04 08:41] LABS: FREE T4 0.96 ng/dL (0.93-1.70); TSH 1.14 uIUmL (0.27-4.20)
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
[2019-01-04] MEDS: NS 1,000 ML IV SCH (12:55)
[2019-01-04 14:07] LABS: ALBUMIN 2.9 g/dL (3.5-5.0); CALCIUM 7.9 mg/dL (8.8-10.2); CREATININE 3.7 mg/dL (0.5-0.9); PHOSPHORUS 5.1 mg/dL (2.7-4.5); POTASSIUM 4.4 mmol/L (3.5-5.1)
[2019-01-04] MEDS: DUONEB (A & A) INH PRN ×2 (16:30→19:25)
[2019-01-04] MEDS: PERCOCET-10 PO PRN (17:37)
[2019-01-05] MEDS: HUMALOG SUBQ SCH ×4 (06:35→20:55)
[2019-01-05] MEDS: NS 1,000 ML IV SCH ×3 (06:35→20:56)
[2019-01-05 07:39] LABS: ALBUMIN 3.1 g/dL (3.5-5.0); CALCIUM 8.5 mg/dL (8.8-10.2); CREATININE 1.9 mg/dL (0.5-0.9); PHOSPHORUS 3.2 mg/dL (2.7-4.5); POTASSIUM 4.8 mmol/L (3.5-5.1)
[2019-01-05] MEDS: PERCOCET-10 PO PRN ×2 (08:15→18:03)
--- NOTE | 2019-01-05 14:52 | PROGRESS NOTE ---
DATE: 01/05/2019 SUBJECTIVE: Ms. Melgar feels better. She was eating a cheeseburger when I came in. OBJECTIVE: She is afebrile, temperature 97.9, pulse 70, respirations 18, blood pressure 135/53. HEENT: Pupils are equal and round. Lungs: Clear in all lung couch. Cardiovascular exam: Regular rhythm and rate without murmur or S3. Abdomen: Soft. Skin: Warm and dry. Urine output was 1600 mL. EKG with normal sinus rhythm, left bundle branch block pattern. Abdominal x-ray showed no acute disease, no free air, or abdominal calcification, and there was no constipation. ASSESSMENT AND PLAN: 1. Nonspecific weakness in her legs. No recent fall or trauma but it is going to be difficult. They already have a [employer] lift and we are going to continue physical therapy, see if she needs to have a longer course of PT. The would like to take her back home with home health. I just do not know if he is going to be able to handle her unless she can help with transfer of weight. 2. Acute kidney injury. Her creatinine was 1.9, came down from 3.7, so that is improved. I do not know if that was just dehydration but renal function has markedly improved. 3. Hypertension. Blood pressure is under good control. Blood sugars look well-controlled as well so there is a possibility she could even go home tomorrow. We will see how we do. cc: Jeromy Rothman MD
[2019-01-06 03:58] LABS: BASO# 0.11 X1000 (0.0-0.2); BASO% 0.9 % (0.0-0.8); EOS# 0.67 X1000 (0.0-0.7); EOS% 5.7 % (0.0-10.0); HEMATOCRIT 31.3 % (37.0-47.0); HEMOGLOBIN 9.7 g/dL (12.0-16.0); IMM GRAN# 0.24 X1000 (0.0-0.04); LYMPH# 3.29 X1000 (1.2-3.4); MCH 27.1 PG (27-31); MCV 87.4 FL (81-99); MONO# 0.79 X1000 (0.11-0.59); MONO% 6.7 % (1.7-9.3); MPV 9.9 FL (7.4-10.4); NEUT# 6.64 X1000 (1.4-6.5); NEUT% 56.7 % (42.2-75.2); PLT 386 X1000 (130-400); RBC 3.58 XMIL (4.2-5.4); RDW 14.5 % (11.5-14.5); WBC 11.74 X1000 (4.8-10.8)
--- NOTE | 2019-01-06 04:01 | EKG Report ---
Test Performed on : 01/06/2019 03:23:40 AM Test Reason : svt on telemetry/change in status Blood Pressure : / mmHG Vent. Rate : 172 BPM Atrial Rate : 170 BPM P-R Int : 000 ms QRS Dur : 136 ms QT Int : 262 ms P-R-T Axes : 000 011 186 degrees QTc Int : 443 ms Wide QRS tachycardia. Left bundle branch block Abnormal ECG When compared with ECG of 04-JAN-2019 07:03, Wide QRS tachycardia. has replaced Sinus rhythm. Vent. rate has increased BY 101 BPM Confirmed by Arsen SUN, Shad Ham ([id number]) on 01/06/2019 7:47:15 AM
[2019-01-06 04:20] LABS: ALB/GLOB RATIO 0.7; ALBUMIN 2.8 g/dL (3.5-5.0); CALCIUM 8.8 mg/dL (8.8-10.2); CREATININE 1.3 mg/dL (0.5-0.9); POTASSIUM 4.5 mmol/L (3.5-5.1); TOTAL BILIRUBIN 0.21 mg/dL (0.20-1.00); TOTAL PROTEIN 6.6 g/dL (6.3-8.3)
[2019-01-06 04:24] LABS: MAGNESIUM 1.4 mg/dL (1.5-2.7)
[2019-01-06] MEDS ORDERED: MAGNESIUM SULFATE 2 GM/S.W.I. 2 GM/50 ML IVPB IV ONE (04:30)
[2019-01-06 05:05] LABS: URINE SOURCE CATH
[2019-01-06 05:07] LABS: BILIRUBIN URINE NEGATIVE (NEGATIVE); BLOOD URINE NEGATIVE (NEGATIVE); COLOR STRAW; GLUCOSE URINE NEGATIVE (NEGATIVE); KETONE URINE 10 mg/dL (NEGATIVE); LEUKOCYTES URINE NEGATIVE (NEGATIVE); NITRITE URINE NEGATIVE (NEGATIVE); PH URINE 5.5; PROTEIN URINE TRACE mg/dL (NEGATIVE); SP GRAVITY URINE 1.009; TURBIDITY URINE CLEAR (CLEAR); UR EPITHELIAL CELLS <10 /HPF (<10); URINE BACTERIA NEGATIVE /HPF; URINE RBC <10 /HPF (<10); URINE WBC <10 /HPF (<10); UROBILINOGEN URINE NORMAL (NORMAL)
[2019-01-06] MEDS: HUMALOG SUBQ SCH ×4 (05:59→20:25)
--- NOTE | 2019-01-06 06:36 | Diag Imaging Result Doc PS360 ---
CHEST-PORTABLE - 01/06/2019 INDICATION: Tachycardia,AMS COMPARISON: 01/03/2019 FINDINGS: There are worsening diffuse bilateral central interstitial opacities. Heart size remains borderline. No large pleural effusion. IMPRESSION: Probable interstitial pulmonary edema. Borderline heart size. Electronically signed by Basim Staley 01/06/2019 6:34 AM
[2019-01-06] MEDS ORDERED: CARDIZEM IV ONE (07:37)
[2019-01-06] MEDS: NS 1,000 ML IV SCH ×2 (07:45→20:12)
[2019-01-06] MEDS ORDERED: CARDIZEM 125 MG/D5W 125 MG/125 ML IVPB IV SCH (07:45)
[2019-01-06 08:39] LABS: ALB/GLOB RATIO 0.9; CREATININE 1.2 mg/dL (0.5-0.9); MAGNESIUM 1.8 mg/dL (1.5-2.7); POTASSIUM 4.1 mmol/L (3.5-5.1); TOTAL BILIRUBIN 0.19 mg/dL (0.20-1.00); TOTAL PROTEIN 6.2 g/dL (6.3-8.3)
--- NOTE | 2019-01-06 09:50 | EKG Report ---
Test Performed on : 01/06/2019 09:31:36 AM Test Reason : Recheck EKG for recent Wide QRS Tachycardia Blood Pressure : / mmHG Vent. Rate : 068 BPM Atrial Rate : 068 BPM P-R Int : 170 ms QRS Dur : 148 ms QT Int : 478 ms P-R-T Axes : 044 014 103 degrees QTc Int : 508 ms Normal sinus rhythm. with sinus arrhythmia. Left bundle branch block Abnormal ECG When compared with ECG of 06-JAN-2019 03:23, Sinus rhythm. has replaced Wide QRS tachycardia. Vent. rate has decreased BY 104 BPM Confirmed by Arsen SUN, Shad Ham ([id number]) on 01/07/2019 7:42:42 PM
--- NOTE | 2019-01-06 10:26 | PROGRESS NOTE ---
DATE: 01/06/2019 SUBJECTIVE: Ms. Melgar came in with weakness. We did not really find anything in the way of infection or metabolic disturbance. Renal function and kidney function looks the same. She has developed supraventricular tachycardia and pretty rapid rate so was moved to the unit. She denied any chest pain. She did have a little bit of shortness of breath. ASSESSMENT AND PLAN: 1. Nonspecific weakness in her legs, and not sure what is causing it. We continued physical therapy. 2. Acute kidney injury. Her creatinine was 1.9, and came down from 3.7 when she was first admitted so this is improving. 3. Hypertension. Blood pressures have been well controlled. No supraventricular tachycardia. We will supplement her magnesium. We will see what type of supraventricular tachycardia we have. I do not know if this is related to her weakness or not. We are going to need to see about discharge plans whether she will need to go to rehab or what we will need to try. cc: Jeromy Rothman MD
[2019-01-06] MEDS: PERCOCET-10 PO PRN (11:08)
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
[2019-01-06] MEDS: LOPRESSOR PO SCH ×2 (14:45→20:23)
--- NOTE | 2019-01-06 15:10 | Diag Imaging Result Doc PS360 ---
EXAM: CT HEAD W/O CONTRAST HISTORY: AMS,Tremor TECHNIQUE: CT head without contrast COMPARISON: 08/25/2018 FINDINGS: No parenchymal hemorrhage. No epidural or subdural hematoma. No subarachnoid hemorrhage. There are chronic microvascular ischemic changes. No mass identified on this noncontrasted exam. No hydrocephalus. No sinus opacification. IMPRESSION: 1.No hemorrhage 2.Mild chronic microvascular ischemic changes This exam was performed using automated exposure control, adjustment of mA or kV according to patient size, and/or use of iterative reconstruction technique. Electronically signed by Cam Noe 01/06/2019 3:08 PM
--- NOTE | 2019-01-06 16:47 | ECHO REPORT ---
ORDER DATE: 01/06/2019 INTERPRETING PHYSICIAN: Calos Weiss MD ECHOCARDIOGRAPHIC MEASUREMENTS: 1. Interventricular septum 1.4 2. Left ventricular posterior wall 1.4. 3. Diastolic diameter 8.9. 4. Left atrium 3.8. 5. Aorta 3.3. 6. Technically suboptimal study. 7. Optison was used to assess left ventricular systolic function. Normal left ventricular cavity size. 8. Mild left ventricular hypertrophy. Estimated ejection fraction of 65%. 9. Mitral valve was normal. There is moderate mitral annular calcification. 10. Tricuspid valve was normal. 11. Aortic valve leaflets trileaflet, mildly sclerosed. 12. Pulmonic valve was normal. 13. There is mild mitral regurgitation. Peak velocity across the aortic valve was 2.3 m/sec. There is no aortic stenosis. There is aortic sclerosis. 14. Mild tricuspid regurgitation. Peak velocity across the tricuspid valve was 2.7 m/sec. 15. Pulmonary artery systolic pressure of 40 mmHg, hence there is no aortic regurgitation. 16. There is no pericardial effusion. cc: MD Jaxon Gambino MD
[2019-01-06] MEDS ORDERED: NS 400 ML IV ONE (18:54)
[2019-01-07] MEDS: LOPRESSOR PO SCH ×4 (04:00→20:52)
[2019-01-07] MEDS: HUMALOG SUBQ SCH ×4 (06:31→20:52)
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
[2019-01-07] MEDS: ELIQUIS PO SCH ×2 (08:42→20:51)
[2019-01-07 09:58] LABS: BASO# 0.08 X1000 (0.0-0.2); BASO% 0.9 % (0.0-0.8); EOS# 0.54 X1000 (0.0-0.7); EOS% 5.8 % (0.0-10.0); HEMATOCRIT 26.7 % (37.0-47.0); HEMOGLOBIN 8.2 g/dL (12.0-16.0); IMM GRAN# 0.18 X1000 (0.0-0.04); IMM GRAN% 1.9 % (0.0-0.5); LYMPH% 22.5 % (20.5-51.1); MCH 27.2 PG (27-31); MCHC 30.7 g/dL (33-37); MCV 88.7 FL (81-99); MONO% 5.4 % (1.7-9.3); MPV 9.7 FL (7.4-10.4); NEUT# 5.94 X1000 (1.4-6.5); NEUT% 63.5 % (42.2-75.2); PLT 344 X1000 (130-400); RBC 3.01 XMIL (4.2-5.4); RDW 14.6 % (11.5-14.5); WBC 9.34 X1000 (4.8-10.8)
--- NOTE | 2019-01-07 10:00 | PROGRESS NOTE ---
DATE: 01/07/2019 SUBJECTIVE: Ms. Melgar is in sinus rhythm. She feels much better. Rate is controlled. Blood pressure looks good. Temp 98.3 degrees, pulse 60, respirations 12, blood pressure 136/59. OBJECTIVE: Pupils are equal round. Lungs are clear in all lung couch. Cardiovascular regular rate without murmur or S3. Abdomen is soft skin is warm and dry. Urine output 1200 mL ASSESSMENT AND PLAN: 1. Obtain echocardiogram. TSH is normal. We put her on oral metoprolol and transitioned her off a diltiazem infusion. She is already on apixaban so we restarted that back. I think that is for upper extremity deep venous thrombosis . We will put her on 5 mg twice a day, but considering her atrial flutter we think she needs to be back on anticoagulant. Also start her thyroid medication. Apparently she was diagnosed, well actually I do not know what her status is on thyroid. She has normal thyroid functions at this time. She was on I believe Synthroid so we may hold the Synthroid. 2. Weakness, trouble with helping transfer weight. 3. Serum creatinine has come down to 1.2. She came with acute kidney injury. 4. Diabetes mellitus type 2. Her sugars appear to be reasonable control. So, thyroid functions, TSH is 1.14, free T4 was 0.96. Cortisol was 3.3, which is a little on the low side. cc: Jeromy Rothman MD
[2019-01-07 10:25] LABS: ALB/GLOB RATIO 0.9; ALBUMIN 2.7 g/dL (3.5-5.0); CALCIUM 8.5 mg/dL (8.8-10.2); CREATININE 1.1 mg/dL (0.5-0.9); POTASSIUM 4.4 mmol/L (3.5-5.1); TOTAL BILIRUBIN 0.21 mg/dL (0.20-1.00); TOTAL PROTEIN 5.6 g/dL (6.3-8.3)
--- NOTE | 2019-01-07 10:33 | CARDIOLOGY PROGRESS NOTE ---
DATE: 01/07/2019 SUBJECTIVE: Ms. Melgar seems a little bit more aware today. She has no shortness of breath, no palpitations, no chest pain. PHYSICAL EXAMINATION: She is afebrile. Her heart rates are in the 50s predominantly. Blood pressure 138/82. Generally, she is in no acute distress. Cardiovascular: She sounds to be in a regular rate and rhythm. Her current monitor shows sinus. She has no lower extremity edema. Her chest examination sounds clear bilaterally. No increased work of breathing. PERTINENT DATA: Her echocardiogram yesterday showed an ejection fraction of 65% with mild to moderate LVH. Today, she has no acute laboratories. ASSESSMENT: Ms. Melgar is a 78-year-old female who went in to atrial fibrillation. She was admitted with acute kidney injury. PLAN: At this point, she is rate-controlled. I will reduce her metoprolol to 25 b.i.d. We will continue her on apixaban for the time-being at 5 mg b.i.d. cc: Jaxon Mattson MD
[2019-01-07] MEDS: NS 1,000 ML IV SCH ×2 (11:24→22:09)
[2019-01-07] MEDS: PERCOCET-10 PO PRN (22:08)
[2019-01-07] MEDS: BENADRYL PO PRN (22:22)
[2019-01-08 05:11] LABS: BASO# 0.06 X1000 (0.0-0.2); BASO% 0.6 % (0.0-0.8); EOS# 0.46 X1000 (0.0-0.7); EOS% 4.8 % (0.0-10.0); HEMATOCRIT 29.8 % (37.0-47.0); IMM GRAN# 0.17 X1000 (0.0-0.04); IMM GRAN% 1.8 % (0.0-0.5); LYMPH# 2.62 X1000 (1.2-3.4); LYMPH% 27.3 % (20.5-51.1); MCH 26.7 PG (27-31); MCHC 30.2 g/dL (33-37); MCV 88.4 FL (81-99); MONO# 0.57 X1000 (0.11-0.59); MONO% 5.9 % (1.7-9.3); MPV 9.9 FL (7.4-10.4); NEUT# 5.71 X1000 (1.4-6.5); NEUT% 59.6 % (42.2-75.2); PLT 325 X1000 (130-400); RBC 3.37 XMIL (4.2-5.4); RDW 14.5 % (11.5-14.5); WBC 9.59 X1000 (4.8-10.8)
[2019-01-08 05:37] LABS: MAGNESIUM 1.5 mg/dL (1.5-2.7); POTASSIUM 4.8 mmol/L (3.5-5.1)
[2019-01-08] MEDS: HUMALOG SUBQ SCH ×2 (06:27→11:00)
[2019-01-08] MEDS ORDERED: SYNTHROID PO SCH (07:00)
[2019-01-08] MEDS: LOPRESSOR PO SCH (09:37)
[2019-01-08] MEDS: NS 1,000 ML IV SCH (09:40)
[2019-01-08] MEDS: ELIQUIS PO SCH (09:40)
[2019-01-08] MEDS: BENADRYL PO PRN (11:01)
[2019-01-08] MEDS: PERCOCET-10 PO PRN (11:01)
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
[2019-01-08 12:21] VITALS: BP 148/86
[2019-01-08] MEDS ORDERED: PNEUMOVAX 23 IM ONE (13:10)
== END 2019-01-08 14:20 | disposition home health service (06) | DRG 947 ==
LOC: SUPCPDRO → ED 15:31 → 3N 20:00 → ICU 01-06 04:06
PROVIDERS: ATTEND Emergency Medicine